=== PATIENT | male | born 1995 | race Caucasian/White ===

== ENCOUNTER 2016-09-27 04:00 | Inpatient (IN) | payer OTHER ==
--- NOTE | ~2016-09-27 | PN ---
Unit #: [id number] #: [id number] Patient: TYRESE HUGHES [id number] [facility] [address] [place] [address] [id number] MR#: [id number] NAME: TYRESE HUGHES ROOM: P263 Age: 21 Sex: M Admission Date: 09/27/2016 : 1995 Attending Physician: Matty Walters M.D. Admitting Physician: Isabel Russo PROGRESS NOTES DATE OF SERVICE: 09/28/2016 DISCUSSION Tyrese is more awake and alert this morning. He continues to be depressed with a downcast affect. He is alert and fully oriented. His memory and concentration are intact. His thought processes are logical. He denies any psychosis, but continues to report suicidal ideation. ASSESSMENT Major depressive disorder, cannabis abuse. PLAN Continue current treatment plan. Dictated by... Isabel RussoH/kobe TD: 09/28/2016 15:35 JOB #: [id number] [facility] PROGRESS NOTES Page 1 of 1 X Matty Walters MD X PROGRESS NOTE
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
--- NOTE | ~2016-09-27 | DS ---
Unit #: [id number] #: [id number] Patient: MICHAEL HUGHES [id number] [facility] [address] [place] [address] [id number] MR#: [id number] NAME: MICHAEL HUGHES. ROOM: [facility] Age: 21 Sex: M Admission Date: 09/27/2016 : 1995 Discharge Date: 09/29/2016 Attending Physician: Matty Walters M.D. Primary Care Physician: Primary Care Physician No DISCHARGE SUMMARY REASON FOR ADMISSION Mr. Hughes is a 21-year-old man, who had suicidal ideation, and was found by the police holding a gun, they convinced him to come to [facility], where he was admitted for stabilization. LABORATORY DATA Please see hospital chart. HOSPITAL COURSE The patient was admitted and placed on suicide precautions. Zoloft 50 mg daily was initiated for treatment of depression, and he tolerated this with no adverse side effects. His mood improved, and he was able to contract for safety on the date of discharge with no further suicidal ideation, intent, or plan. He also admitted to some cannabis abuse prior to hospitalization, which complicates his picture. On the date of discharge, he was able to contract for safety with no further suicidal ideation, intent, or plan. DISCHARGE DIAGNOSES AXIS I: Major depression and cannabis abuse. AXIS II: No diagnosis. AXIS III: None acute. AXIS IV: AXIS V: DISCHARGE INSTRUCTIONS The patient is to follow up with provider of choice. DISCHARGE MEDICATIONS Zoloft 50 mg daily for depression. CONDITION AT DISCHARGE Improved. PROGNOSIS Good. DIET AND ACTIVITY Ad gaye. Dictated by... Unit #: [id number] #: [id number] Patient: MICHAEL HUGHES Matty Walters M.D. [facility]/modl TD: 10/20/2016 13:13 JOB #: [id number] DISCHARGE SUMMARY Page 1 of 1 X Matty Walters MD X DISCHARGE SUMMARY
--- NOTE | ~2016-09-27 | HP ---
Unit #: [id number] #: [id number] Patient: TYRESE HUGHES [id number] [place] [address] [id number] MR#: [id number] NAME: TYRESE HUGHES. ROOM: 63 Age: 21 Sex: M Admission Date: 09/27/2016 : 1995 Attending Physician: Matty Walters M.D. Admitting Physician: Matty Walters M.D. Primary Care Physician: Primary Care Physician No HISTORY AND PHYSICAL HISTORY OF PRESENT ILLNESS Tyrese is a 21 year old admitted to [address] [place] [address] with depression and verbalizing wanting to hurt himself. PAST MEDICAL HISTORY Nothing significant. PAST SURGICAL HISTORY Nothing reported. ALLERGIES No known drug allergies. SOCIAL HISTORY Smokes one pack per day. Drinks alcohol on occasion. Admits to using marijuana on a daily basis. FAMILY HISTORY Medically noncontributory. REVIEW OF SYSTEMS CONSTITUTIONAL: No fever or chills. HEENT: Denies any sore throat, ear pain or runny nose. CARDIOVASCULAR: Denies chest pain, irregular heart rhythm or palpitations. CHEST: Denies shortness of breath or cough. No hemoptysis. GASTROINTESTINAL: Denies nausea, vomiting, diarrhea or chronic constipation. ENDOCRINE: Denies history of increased thirst or urination. No recent significant weight loss or gain. GENITOURINARY: Denies dysuria, frequency, or hematuria. SKIN: Denies any rashes. HEMATOLOGIC: Denies history of increased bleeding or bruising. MUSCULOSKELETAL: Denies any hot, swollen joints. No generalized muscle pain. NEUROLOGIC: Denies problems with vision or speech. No frequent, severe headaches. No numbness, tingling or weakness in any extremities. Denies loss of bladder or bowel control. CURRENT MEDICATIONS 1. Zoloft 50 mg q day 2. Nicotine patch 14 mg q day 3. Milk of Magnesia p.r.n. Unit #: [id number] #: [id number] Patient: TYRESE HUGHES 4. Maalox p.r.n. 5. Tylenol p.r.n. PHYSICAL EXAMINATION GENERAL: Alert, well-nourished, in no apparent distress. VITAL SIGNS: Blood pressure 110/70, heart rate 80, respirations 16, temperature 98.6. WEIGHT: 180 pounds. HEIGHT: 5 foot 9 inches. SKIN: Warm and dry without rash or lesion. HEENT: Normocephalic. TMs not viewed. Oral and nasal passages clear. Conjunctivae clear. Pupils equal, round and reactive to light and accommodation. Extraocular movements intact. NECK: Supple without lymphadenopathy or thyromegaly. HEART: Regular rate and rhythm without murmur. LUNGS: Clear. ABDOMEN: Soft, nontender. : Not done. EXTREMITIES: No evidence of cyanosis, clubbing or edema. Moves all extremities without focal deficit. NEUROLOGICAL: Grossly within normal limits. Cranial Nerves: II: Visual chavarria are intact. III, IV AND : Extraocular movements are intact. Pupils are equal, round and reactive to light. V: Facial sensation is grossly normal. VII: Facial movements and expression are normal. VIII: Auditory acuity grossly intact. IX, X: Uvula is midline. Phonation is normal. XI: Patient shrugs shoulders and turns head normally. XII: Tongue protrudes in the midline. Sensory and Motor Function: Sensory and motor sensation is grossly normal. Motor: moves all extremities well. Coordination: Gait is normal. Deep Tendon Reflexes: Intact. IMPRESSION Psychiatric admission RECOMMENDATIONS PSYCHIATRIC: Per psychiatrist. MEDICAL: I see no contraindications to participating in facility's activities. MEDICAL PROGNOSIS Good. MEDICAL CONDITION Stable. Dictated by... Tiffanie Dubon P.A.-C. for Isabel Sheppard/michelle TD: 09/28/2016 00:09 Unit #: [id number] #: [id number] Patient: TYRESE HUGHES JOB #: [id number] HISTORY AND PHYSICAL Page 1 of 1 X Tiffanie Dubon HISTORY AND PHYSICAL
[~2016-09-27 04:00] MED LIST: CLARITIN10 MG; K-DUR20 ME1 PO; MEDI-MECLIZINE25 M1 PO; NO MEDICATIONS; ZOFRAN ODT4 MG PO
[2016-09-28 09:34] LABS: BASOPHIL% 0.4 % (0-2.5); EOSINOPHIL# 0.1 X10e3 (0-0.7); EOSINOPHIL% 1.7 % (0.0-7.0); HEMATOCRIT 45.7 % (38.0-50.0); HEMOGLOBIN 15.8 gm/dL (13.0-16.0); LYMPHOCYTE# 2.6 X10e3 (1.0-3.5); LYMPHOCYTE% 40.2 % (17.0-45.0); MEAN CELL VOLUME 86.5 FL (83-96); MEAN CORPUSCULAR HEMOGLOBIN 29.9 PG (28-34); MEAN CORPUSCULAR HGB CONC 34.6 g/dL (30-36); MEAN PLATELET VOLUME 7.9 FL (6.5-11.5); MONOCYTE# 0.5 X10e3 (0-1.0); MONOCYTE% 8.3 % (3.0-12.0); NEUTROPHIL# 3.2 X10e3 (1.5-7.1); NEUTROPHIL% 49.4 % (40-75); PLATELET COUNT 165 X10e3 (140-420); RED BLOOD COUNT 5.29 X10e (3.90-5.60); RED CELL DISTRIBUTION WIDTH 13.7 % (11.0-15.5); WHITE BLOOD COUNT 6.6 X10e3 (4.0-10.5)
[2016-09-28 09:57] LABS: DIFF IND NO
[2016-09-28 10:14] LABS: BILIRUBIN,TOTAL 1.6 mg/dL (0.2-2.0); BUN/CREATININE RATIO 16.25; CALCIUM SERUM 9.7 mg/dL (8.4-10.2); CREATININE SERUM 0.8 mg/dL (0.6-1.4); GLOM FILT RATE Estimated 127.7 mL/min (>60); POTASSIUM 4.3 mmol/L (3.5-5.1); PROTEIN TOTAL SERUM 6.4 g/dL (6.0-8.3)
[2016-09-29 11:04] LABS: AMPHETAMINE NEG (NEG); BARBITURATES NEG (NEG); BENZODIAZEPINES NEG (NEG); COCAINE NEG (NEG); MARIJUANA POS (NEG); OPIATES NEG (NEG); TRICYCLIC ANTIDEPRESSANTS NEG (NEG); U METHADONE NEG (NEG)
== END 2016-09-29 14:30 | disposition home or self-care (01) | DRG 881 ==
LOC: P2L 05:33
PROVIDERS: Psychiatry & Neurology Psychiatry
DX: F32.9 Major depressive disorder, single episode, unspecified (principal); R45.851 Suicidal ideations; F12.10 Cannabis abuse, uncomplicated
CPT/HCPCS: 80053; 80307; 85025